=== PATIENT | male | born 1990 | race Caucasian/White ===

== ENCOUNTER 2020-10-22 21:00 | Emergency (ER) | payer BC, OTHER ==
[2020-10-22] MEDS ORDERED: HYDROmorphone 1 MG/ML Syringe IM ONE (21:57)
--- NOTE | 2020-10-22 22:01 | EDM.PDOC ---
ED HPI GENERAL MEDICAL PROBLEM - General Chief Complaint: Gastrointestinal Problem Stated Complaint: HERNIA Time Seen by Provider: 10/22/20 21:30 Source of Information: Reports: Patient, Family History Limitations: Reports: No Limitations - History of Present Illness INITIAL COMMENTS - FREE TEXT/NARRATIVE: 30-year-old male with a history of a hernia repair with mesh placement several years ago, has been having trouble again in the last 3 to 4 weeks. It is swollen, if he lays down and rubs it it can get better and he actually feels it reduced. Today it was bothering him more than usual so he came in to get it checked. No nausea or vomiting, no fevers or chills. Onset: Gradual Duration: Week(s): (4 weeks) Location: Reports: Abdomen (Right lower quadrant and right groin) right hernia Pain Score (Numeric/FACES): 7 - Related Data Allergies Allergy/AdvReac Type Severity Reaction Status Date / Time zolpidem [From Ambien] Allergy Other Verified 10/22/20 22:08 Home Meds: Home Meds Citalopram Hydrobromide [Celexa] 40 mg PO BEDTIME 10/22/20 [History] Past Medical History Musculoskeletal History: Reports: Fracture - Past Surgical History GI Surgical History: Reports: Hernia Repair/Other Social & Family History - Caffeine Use Caffeine Use: Reports: Coffee ED ROS GENERAL - Review of Systems Review Of Systems: See Below Constitutional: Denies: Fever, Chills Respiratory: Denies: Shortness of Breath Cardiovascular: Denies: Chest Pain GI/Abdominal: Reports: Abdominal Pain. Denies: Nausea, Vomiting : Reports: No Symptoms ED EXAM, GI/ABD - Physical Exam Exam: See Below Exam Limited By: No Limitations General Appearance: Alert, No Apparent Distress (Looks uncomfortable but not distressed) Eyes: Bilateral: Normal Appearance (No jaundice) Respiratory/Chest: No Respiratory Distress GI/Abdominal Exam: Normal Bowel Sounds, Tender (Very tender to palpation just above the inguinal ligament on the right side with a fullness and somewhat crepitus sensation typical of a hernia.) (Male) Exam: Other (Tenderness to palpation extends into the inguinal canal and right testicle but there is no mass or hernia felt in this area) Course - Vital Signs Last Recorded V/S: Last Vital Signs Temp 98.2 F 10/22/20 22:10 Pulse 90 10/22/20 22:10 Resp 16 10/22/20 22:10 BP 153/90 H 10/22/20 22:10 Pulse Ox 98 10/22/20 22:10 - Orders/Labs/Meds Meds: Medications Discontinued Medications Generic Name Dose Route Start Last Admin Trade Name Catrina PRN Reason Stop Dose Admin Hydromorphone HCl 1 mg 10/22/20 21:57 10/22/20 22:16 Dilaudid IM 10/22/20 21:58 1 mg ONETIME ONE Administration - Re-Assessments/Exams Free Text/Narrative Re-Assessment/Exam: 10/22/20 22:00 This patient is likely having a recurring inguinal hernia, this was discussed with Dr. Taylor. He was given 1 mg of IM Dilaudid and will recheck at the clinic tomorrow morning at 10 AM for a surgical exam. Departure - Departure Time of Disposition: 22:30 Disposition: Home, Self-Care 01 Clinical Impression: Right groin hernia - Discharge Information Instructions: Hernia, Adult Referrals: Betty Horowitz PA-C [Primary Care Provider] - Forms: ED Department Discharge Care Plan Goals: Rest tonight, recheck tomorrow morning at the clinic to see Dr. Taylor and arrive by 10 AM. He will work you in, return to the emergency room tonight if pain is severe, you develop fever or nausea or vomiting. Sepsis Event Note (ED) - Focused Exam Vital Signs: Vital Signs Temp Pulse Resp BP Pulse Ox 10/22/20 22:10 98.2 F 90 16 153/90 H 98 10/22/20 21:12 98.2 F 90 16 153/90 H 98
== END 2020-10-22 22:30 | disposition home or self-care (01) ==
LOC: JP.ED 21:00
DX: K40.90 Unilateral inguinal hernia, without obstruction or gangrene, not specified as recurrent (principal); Z88.8 Allergy status to other drugs, medicaments and biological substances; Z79.899 Other long term (current) drug therapy
CPT/HCPCS: 96372; 99283; J1170

== ENCOUNTER 2020-10-24 09:29 | Day surgery (SDC) | payer OTHER ==
[2020-10-24] MEDS ORDERED: Dextrose 5%-Lactated Ringers 1,000 ML IV SCH (10:15)
[2020-10-24] MEDS ORDERED: Acetaminophen 500 MG Tab PO ONE (10:15)
[2020-10-24] MEDS ORDERED: Neostigmine Methylsulfate 1 MG/ML 5 ML Syringe ONE (10:48)
[2020-10-24] MEDS ORDERED: Glycopyrrolate 0.2 MG/ML 5 ML MDV ONE (10:48)
[2020-10-24] MEDS ORDERED: Propofol 200 MG/20 ML SDV ONE (10:48)
[2020-10-24] MEDS ORDERED: Succinylcholine 200 MG/10 ML MDV ONE (10:48)
[2020-10-24] MEDS ORDERED: Ondansetron 4 MG/2 ML SDV ONE (10:48)
[2020-10-24] MEDS ORDERED: Dexamethasone 4 MG/ML SDV ONE (10:48)
[2020-10-24] MEDS ORDERED: fentaNYL 250 MCG/5 ML SDV ONE (10:48)
[2020-10-24] MEDS ORDERED: Rocuronium 50 MG/5 ML Vial ONE (10:48)
[2020-10-24] MEDS ORDERED: ceFAZolin 2 GM in Premix Bag 1 BAG IV ONE (11:00)
[2020-10-24] MEDS ORDERED: Lactated Ringers 0 ML ONE (11:06)
[2020-10-24] MEDS ORDERED: Bupivacaine 0.5%/EPINEPHrine 1:200,000 50 ML MDV ONE (12:24)
[2020-10-24] MEDS ORDERED: Ketorolac 60 MG/2 ML SDV ONE (14:02)
--- NOTE | 2020-10-30 12:54 | OR ---
DATE OF PROCEDURE: 10/24/2020 SURGEON: Uday Taylor MD PREOPERATIVE DIAGNOSIS: Recurrent incarcerated right inguinal hernia. POSTOPERATIVE DIAGNOSES: 1. Recurrent incarcerated right inguinal hernia. 2. Portion of previously placed mesh had eroded into intraperitoneal location. 3. Scar entrapment of right ilioinguinal nerve. OPERATIVE PROCEDURES: Right inguinal exploration with, 1. Repair of recurrent incarcerated inguinal hernia with mesh (44645). 2. Removal of eroded previously placed mesh (51912). 3. Excision of portion of ilioinguinal nerve (43205). ANESTHESIA: General. CNC MILL PROGRAMMER: Vandana Escobedo PA-C INDICATIONS FOR PROCEDURE: This is a 30-year-old male, presenting with a previously repaired right inguinal hernia. This was done in [place] several years ago with mesh technique. The plan is to proceed with a repair of the now quite painful recurrent and incarcerated right inguinal hernia. Potential risks of the procedure including bleeding, infection, injury to underlying cord structures and/or viscera, possible infection of the mesh that would be placed or recurrence of the hernia over time as well as possibility of chronic pain following the procedure were all reviewed, and the patient wishes to proceed. DETAILS OF PROCEDURE: The patient was taken to the operative room, and after general endotracheal anesthesia was induced, the abdomen and groin areas were prepped and draped. The previous right inguinal incision was then reused and carried down through the skin and subcutaneous tissue, and the external oblique aponeurosis laparotomy flaps were then raised superiorly and inferiorly. The patient was noted to have a recurrence lateral to the previously placed mesh, i.e., this was an indirect-type recurrence. This mesh on subsequent dissection was noted to have eroded somewhat into the peritoneal cavity. As this was dissected free, a small area of small bowel was adherent to the mesh. This was dissected off without deserosalization of the small bowel and that portion of the old mesh then excised. Entering the area of inflammation was the right ilioinguinal nerve portion. This was excised lateral to that and out to the far extent of the incision laterally so as to avoid chronic neuropathic pain postoperatively. An extra large mesh plug was then placed into the defect and sutured area medially, superiorly, and laterally to the conjoint tendon with horizontal mattress sutures of 0 Vicryl stitch. This was also then secured to the shelving portion of the inguinal ligament with the same stitch and at that point, the conjoined tendon was reapproximated to the shelving portion of the inguinal ligament overlying the mesh with an 0 Vicryl stitch. The small portion of the mesh plug system was then placed over the defect and secured there with some 3-0 Vicryl stitch and the external oblique aponeurosis was then approximated with 3-0 Vicryl stitch over the cord structures and the subcutaneous tissue was approximated with 4-0 Vicryl stitch. Skin was closed with 4-0 Vicryl subcuticular stitch. The wound had been anesthetized with 1% lidocaine mixed with Marcaine at that point and the patient was taken to the recovery room in satisfactory condition. Physician ambulance assistant, Vandana Escobedo, played an essential role in assisting in this case helping to position the patient, retract structures as needed, as well as suturing and cutting sutures when indicated. Her presence improved patient safety and decreased the operative time. Uday Taylor MD /[id number]
== END 2020-10-24 15:49 | disposition home or self-care (01) ==
LOC: JP.SDS 09:29
PROVIDERS: ATTEND Surgery
DX: K40.91 Unilateral inguinal hernia, without obstruction or gangrene, recurrent (principal); G57.81 Other specified mononeuropathies of right lower limb; F17.200 Nicotine dependence, unspecified, uncomplicated; Z88.8 Allergy status to other drugs, medicaments and biological substances; Z79.899 Other long term (current) drug therapy; Z01.812 Encounter for preprocedural laboratory examination; Z20.822 Contact with and (suspected) exposure to COVID-19
CPT/HCPCS: 36415; 49521; 64772; 80048; 85027; 87635; A9270; C1713; C1781; J0330; J0690; J1100; J1885; J2405; J2704; J2710; J3010; J3490; J7121; 88300; 88302; J7120; U0002

== ENCOUNTER 2020-10-29 15:05 | Emergency (ER) | payer OTHER ==
--- NOTE | 2020-10-29 16:07 | EDM.PDOC ---
ED HPI GENERAL MEDICAL PROBLEM - General Chief Complaint: Abdominal Pain Stated Complaint: pain after surgery Time Seen by Provider: 10/29/20 15:50 Source of Information: Reports: Patient, Old Records, RN History Limitations: Reports: No Limitations - History of Present Illness INITIAL COMMENTS - FREE TEXT/NARRATIVE: 30 yo male presents with a swollen and ecchymotic R testicle that developed after a recent hernia surgery in that area. Is concerned, is tolerated the pain. Eating OK, BM's OK, no fever. Onset: Gradual Duration: Day(s):, Getting Worse Location: Reports: Pelvis (scrotum) Quality: Reports: Dull Severity: Mild Improves with: Reports: Other (wearing jock strap) Worsens with: Reports: Movement Context: Reports: Other (See HPI) Associated Symptoms: Reports: No Other Symptoms Treatments FREIGHT AGENT: Reports: Acetaminophen - Related Data Allergies Allergy/AdvReac Type Severity Reaction Status Date / Time hydrocortisone Allergy Anxiety Verified 10/29/20 15:44 hydroxyzine Allergy Itching Verified 10/29/20 15:44 zolpidem [From Ambien] Allergy Other Verified 10/29/20 15:44 Home Meds: Home Meds Citalopram Hydrobromide [Celexa] 40 mg PO BEDTIME 10/22/20 [History] Past Medical History Gastrointestinal History: Reports: Other (See Below) Other Gastrointestinal History: Inguinal hernias Musculoskeletal History: Reports: Fracture, Other (See Below) Other Musculoskeletal History: Left wrist fx Psychiatric History: Reports: Anxiety, Depression, Suicide Attempt - Past Surgical History GI Surgical History: Reports: Hernia Repair/Other, Other (See Below) Other GI Surgeries/Procedures: cystoceles due to hernia repair Male Surgical History: Reports: Penile Surgery Social & Family History - Family History HEENT: Reports: None - Tobacco Use Tobacco Use Status *Q: Current Every Day Tobacco User Years of Tobacco use: 16 Packs/Tins Daily: 1 - Caffeine Use Caffeine Use: Reports: Coffee, Soda ED ROS GENERAL - Review of Systems Review Of Systems: See Below Constitutional: Reports: No Symptoms Respiratory: Reports: No Symptoms Cardiovascular: Reports: No Symptoms GI/Abdominal: Reports: Other (recent hernia repair) : Reports: Other (somewhat harder than usual to void) Musculoskeletal: Reports: No Symptoms Skin: Reports: Bruising (in area of surgery), Wound (surgical wound from hernia repair.) Neurological: Reports: No Symptoms ED EXAM, GI/ABD - Physical Exam Exam: See Below Exam Limited By: No Limitations General Appearance: Alert, WD/WN, No Apparent Distress GI/Abdominal Exam: Other (Clean surgical wound with some surrounding echymosis. ) (Male) Exam: Scrotum Tenderness (R) (from blood in scrotum) Extremities: Normal Inspection, No Pedal Edema Neurological: Alert, Oriented, CN II-XII Intact, Normal Cognition, No Motor/Sensory Deficits Skin Exam: Warm, Dry, Intact, No Rash, Ecchymosis (from area of surgery and down into the scrotum, R>L) Course - Vital Signs Last Recorded V/S: Last Vital Signs Temp 37.1 C 10/29/20 15:48 Pulse 82 10/29/20 15:48 Resp 16 10/29/20 15:48 BP 136/82 10/29/20 15:48 Pulse Ox 93 L 10/29/20 15:48 Departure - Departure Time of Disposition: 16:07 Disposition: Home, Self-Care 01 Condition: Good Clinical Impression: Post-op bleeding Qualifiers: Surgical complication system/body Area: subcutaneous tissue Procedure type: non-dermatologic Qualified Code(s): L76.22 - Postprocedural hemorrhage of skin and subcutaneous tissue following other procedure - Discharge Information Referrals: Uday Taylor MD [Primary Care Provider] - Additional Instructions: Use acetaminophen for pain relief. Continue present cares. The blood in your scrotum will go away in time without any treatment. Return if you can't urinate. Sepsis Event Note (ED) - Evaluation Sepsis Screening Result: No Definite Risk - Focused Exam Vital Signs: Vital Signs Temp Pulse Resp BP Pulse Ox 10/29/20 15:48 37.1 C 82 16 136/82 93 L 10/29/20 15:25 37.1 C 82 16 136/82 93 L
== END 2020-10-29 16:14 | disposition home or self-care (01) ==
LOC: JP.ED 15:05
DX: L76.22 Postprocedural hemorrhage of skin and subcutaneous tissue following other procedure (principal); Z88.8 Allergy status to other drugs, medicaments and biological substances; Z72.0 Tobacco use
CPT/HCPCS: 99282; 99283

== ENCOUNTER 2021-06-16 21:03 | Emergency (ER) | payer OTHER ==
[2021-06-16] MEDS ORDERED: diphenhydrAMINE 25 MG Cap PO ONE (21:51)
[2021-06-16] MEDS ORDERED: Famotidine 20 MG Tab PO ONE (21:51)
[2021-06-16] MEDS ORDERED: methylPREDNISolone Sodium Succinate 40 MG/1 ML SDV IM ONE (21:51)
--- NOTE | 2021-06-16 22:05 | EDM.PDOC ---
ED HPI GENERAL MEDICAL PROBLEM - General Chief Complaint: Allergic Reaction Stated Complaint: SWOLLEN EYES, RASH Time Seen by Provider: 06/16/21 21:30 Source of Information: Reports: Patient History Limitations: Reports: No Limitations - History of Present Illness INITIAL COMMENTS - FREE TEXT/NARRATIVE: Patient arrives with rash of face around both eyes, above bridge of nose, around left ear down left side of face, and on the base of the shaft of his penis. Patientdoes not recall any interaction with anything that may have caused this. He woke up with this and noticed that it is getting worse as the day goes on Onset: Sudden Onset Date: 06/15/21 Location: Reports: Head, Face, Other (Base of penis) Quality: Reports: Burning, Other Severity: Severe Improves with: Reports: None Worsens with: Reports: None Context: Reports: Other (Allergic reaction) Associated Symptoms: Reports: No Other Symptoms Headache Pain Score (Numeric/FACES): 3 - Related Data Allergies Allergy/AdvReac Type Severity Reaction Status Date / Time hydroxyzine Allergy Itching Verified 10/29/20 15:44 zolpidem [From Ambien] Allergy Other Verified 10/29/20 15:44 Home Meds: Home Meds Citalopram Hydrobromide [Celexa] 40 mg PO BEDTIME 10/22/20 [History] Buprenorphine HCl/Naloxone HCl [Suboxone 4 mg-1 mg Sl Film] 8 mg PO DAILY 06/16/21 [History] Mirtazapine [Remeron] 15 mg PO DAILY 06/16/21 [History] predniSONE [Prednisone] 40 mg PO DAILY 5 Days #10 tablet 06/16/21 [Rx] Past Medical History Gastrointestinal History: Reports: Other (See Below) Other Gastrointestinal History: Inguinal hernias Musculoskeletal History: Reports: Fracture, Other (See Below) Other Musculoskeletal History: Left wrist fx Psychiatric History: Reports: Anxiety, Depression, Suicide Attempt - Past Surgical History GI Surgical History: Reports: Hernia Repair/Other, Other (See Below) Other GI Surgeries/Procedures: cystoceles due to hernia repair Male Surgical History: Reports: Penile Surgery Social & Family History - Family History HEENT: Reports: None - Tobacco Use Tobacco Use Status *Q: Current Every Day Tobacco User Years of Tobacco use: 18 Packs/Tins Daily: 1 - Caffeine Use Caffeine Use: Reports: Coffee, Soda, Tea - Recreational Drug Use Recreational Drug Use: No ED ROS ALLERGIC REACTION - Review of Systems Review Of Systems: See Below Constitutional: Reports: No Symptoms HEENT: Reports: Ear Pain (External) Respiratory: Reports: No Symptoms Cardiovascular: Reports: No Symptoms Endocrine: Reports: No Symptoms GI/Abdominal: Reports: No Symptoms : Reports: No Symptoms Musculoskeletal: Reports: No Symptoms Skin: Reports: Pruritis, Rash, Erythema, Wound (Around eyes above bridge of nose over left ear down left side of face, base of the shaft of the penis) Neurological: Reports: No Symptoms Psychiatric: Reports: No Symptoms Hematologic/Lymphatic: Reports: No Symptoms Immunologic: Reports: No Symptoms ED EXAM GENERAL NO PERIP PULSE - Physical Exam Exam: See Below Exam Limited By: No Limitations General Appearance: Alert, Mild Distress Eye Exam: Bilateral Eye: PERRL, Other (Rash around bilateral eyes) Ears: Other (Rash around left outer ear) Nose: Other (Rash around bridge of nose and up into the eyes) Throat/Mouth: Normal Inspection, Normal Lips Head: Atraumatic Neck: Normal Inspection Respiratory/Chest: No Respiratory Distress, Lungs Clear, Normal Breath Sounds Cardiovascular: Normal Peripheral Pulses, Regular Rate, Rhythm, No Edema GI/Abdominal: Normal Bowel Sounds, Soft, Non-Tender (Male) Exam: Circumcised, Penile Lesions Back Exam: Normal Inspection Extremities: Normal Inspection, Normal Range of Motion Course - Vital Signs Last Recorded V/S: Last Vital Signs Temp 36.7 C 06/16/21 21:29 Pulse 69 06/16/21 21:29 Resp 16 06/16/21 21:29 BP 122/78 06/16/21 21:29 Pulse Ox 97 06/16/21 21:29 - Orders/Labs/Meds Meds: Medications Discontinued Medications Generic Name Dose Route Start Last Admin Trade Name Freq PRN Reason Stop Dose Admin Diphenhydramine HCl 25 mg 06/16/21 21:51 06/16/21 22:06 Diphenhydramine 25 Mg Cap PO 06/16/21 21:52 25 mg ONETIME ONE Administration Famotidine 20 mg 06/16/21 21:51 06/16/21 22:06 Famotidine 20 Mg Tab PO 06/16/21 21:52 20 mg ONETIME ONE Administration Methylprednisolone Sodium Succinate 40 mg 06/16/21 21:51 06/16/21 22:07 Methylprednisolone Sodium Succinate 40 Mg/1 Ml Sdv IM 06/16/21 21:52 40 mg ONETIME ONE Administration - Re-Assessments/Exams Free Text/Narrative Re-Assessment/Exam: 06/16/21 23:11 Patient with poison ignacia. Patient was provided steroid and antihistamines in the ER. Patient is prescribed an oral steroid to be taken daily for the next 5 days. Any difficulty with his vision he needs to return to the ER immediately if his symptoms do not seem to improve within the next several days he needs to return to be seen or be seen in the clinic with his primary care provider. Departure - Departure Time of Disposition: 23:14 Disposition: Home, Self-Care 01 Condition: Fair Clinical Impression: Poison ignacia - Discharge Information *PRESCRIPTION DRUG MONITORING PROGRAM REVIEWED*: Not Applicable *COPY OF PRESCRIPTION DRUG MONITORING REPORT IN PATIENT MAGGIE: Not Applicable Prescriptions: predniSONE [Prednisone] 40 mg PO DAILY 5 Days #10 tablet Instructions: Poison Ignacia Dermatitis, Poison Ignacia Dermatitis, [id number], [facility], Adult Referrals: Vira Humphries PA-C [Primary Care Provider] - Forms: ED Department Discharge Additional Instructions: Poison ignacia to face., Hands and, base of shaft of penis. You were given steroids and medication to stop the histamine response while you were in the ER. The next 5 days you will need to take prednisone 40 mg daily. Make sure you take this in the morning with food as it tends to upset your stomach and cause difficulty sleeping if taken late in the day Pt left prior to receiving discharge paper work. Attempted to contact by phone - mailbox was full. DC instructions sent to patient and rx was electronically sent to his listed pharmacy. - Assessment/Plan Assessment:: Poison ignacia Plan: Received corticosteroids and histamine blockers in the ER. Additional prednisone was prescribed for daily dose for the next 5 days. Follow-up with your primary care provider if this causes any problems with your vision or to the ER if unable to get into your primary.
== END 2021-06-16 22:30 | disposition home or self-care (01) ==
LOC: JP.ED 21:03
DX: L23.7 Allergic contact dermatitis due to plants, except food (principal); F17.210 Nicotine dependence, cigarettes, uncomplicated; Z88.8 Allergy status to other drugs, medicaments and biological substances; Z79.899 Other long term (current) drug therapy
CPT/HCPCS: 96372; 99282; A9270; J2920

== ENCOUNTER 2021-11-20 17:25 | Emergency (ER) | payer OTHER ==
[2021-11-20] MEDS ORDERED: LORazepam 2 MG/ML SDV IVPUSH ONE (17:29)
[2021-11-20] MEDS ORDERED: Sodium Chloride 0.9% 10 ML Syringe FLUSH PRN (17:30)
[2021-11-20] MEDS ORDERED: Buprenorphine/Naloxone 8-2 MG Tab.SL SL ONE (18:04)
== END 2021-11-20 18:41 | disposition home or self-care (01) ==
LOC: JP.ED 17:25
DX: F11.23 Opioid dependence with withdrawal (principal); M62.838 Other muscle spasm; Z72.0 Tobacco use; Z88.5 Allergy status to narcotic agent; Z88.8 Allergy status to other drugs, medicaments and biological substances
CPT/HCPCS: 36415; 71045; 80048; 80076; 82550; 85025; 93005; 93010; 96374; 99283; 99284; J0574; J2060

== ENCOUNTER 2021-11-20 21:46 | Emergency (ER) | payer OTHER ==
[2021-11-20] MEDS ORDERED: OLANZapine 10 MG Vial IM ONE (22:11)
== END 2021-11-20 22:56 | disposition home or self-care (01) ==
LOC: JP.ED 21:46
DX: F11.23 Opioid dependence with withdrawal (principal); R25.8 Other abnormal involuntary movements; Z88.5 Allergy status to narcotic agent; Z88.8 Allergy status to other drugs, medicaments and biological substances
CPT/HCPCS: 96372; 99283; 99284; J3490

== ENCOUNTER 2022-02-25 08:33 | Emergency (ER) | payer OTHER ==
[2022-02-26] MEDS ORDERED: Venlafaxine 75 MG Tab PO ONE (09:05)
[2022-02-26] MEDS ORDERED: Venlafaxine 75 MG Cap.ER PO ONE (09:09)
== END 2022-02-25 09:21 | disposition home or self-care (01) ==
LOC: JP.ED 08:33
DX: F41.9 Anxiety disorder, unspecified (principal); F17.210 Nicotine dependence, cigarettes, uncomplicated; Z88.8 Allergy status to other drugs, medicaments and biological substances
CPT/HCPCS: 99282; 99283; A9270